=== PATIENT | male | born 1985 | race Caucasian/White ===

== ENCOUNTER 2021-03-20 05:48 | Outpatient (CLI) | payer OTHER ==
[~2021-03-20] VITALS: Ht 172.7 cm; Wt 69.5 kg
[~2021-03-20 05:48] MED LIST: ACET-168 PO; AMOX500C2 PO; SODI104S3 NS
== END 2021-03-21 09:17 | disposition home or self-care (01) ==
LOC: PREOP 05:48
PROVIDERS: ATTEND Surgery
DX: Z01.818 Encounter for other preprocedural examination (principal)

== ENCOUNTER 2021-03-31 05:41 | Outpatient (CLI) | payer OTHER ==
[~2021-03-31] VITALS: Ht 172.7 cm; Wt 69.5 kg
[2021-03-31 11:23] LABS: BASOPHILS % (AUTO) 0 % (0-10); EOSINOPHILS # (AUTO) 0.3 10^3/uL (0.0-0.3); EOSINOPHILS % (AUTO) 3 % (0-10); HEMATOCRIT 45 % (40-54); HEMOGLOBIN 15.5 g/dL (13.3-17.7); LYMPHOCYTES # (AUTO) 2.2 X 10^3 (1.0-4.0); LYMPHOCYTES % (AUTO) 28 % (12-44); MEAN CORPUSCULAR HEMOGLOBIN 30 pg (25-34); MEAN CORPUSCULAR HGB CONC 35 g/dL (32-36); MEAN CORPUSCULAR VOLUME 85 fL (80-99); MEAN PLATELET VOLUME 9.6 fL (9.0-12.2); MONOCYTES # (AUTO) 0.8 X 10^3 (0.0-1.0); MONOCYTES % (AUTO) 9 % (0-12); NEUTROPHILS # (AUTO) 4.7 X 10^3 (1.8-7.8); NEUTROPHILS % (AUTO) 59 % (42-75); PLATELET COUNT 328 10^3/uL (130-400)
== END 2021-03-31 11:51 | disposition home or self-care (01) ==
LOC: PREOP 05:41
PROVIDERS: ATTEND Surgery
DX: Z01.812 Encounter for preprocedural laboratory examination (principal); K40.20 Bilateral inguinal hernia, without obstruction or gangrene, not specified as recurrent
CPT/HCPCS: 36415; 85025; 87081

== ENCOUNTER 2021-03-31 10:53 | Day surgery (SDC) | payer OTHER ==
[~2021-03-31] VITALS: Ht 172.7 cm; Wt 69.5 kg
[2021-03-31] MEDS ORDERED: LACTATED RINGERS 1,000 ML IV ONE (11:02)
[2021-03-31] MEDS ORDERED: PROPOFOL INJECTION 50 ML IV ONE (11:06)
[2021-03-31] MEDS ORDERED: MIDAZOLAM 2 MG/2 ML (VERSED) VIAL ONE (11:07)
[2021-03-31] MEDS ORDERED: LACTATED RINGERS 1,000 ML IV STA (11:07)
[2021-03-31 11:17] VITALS: BP 107/78
[2021-03-31 12:15] VITALS: BP 89/52
--- NOTE | 2021-03-31 12:18 | Progress Note-Post Operative ---
Post-Operative Progess Note Surgeon (s)/Nursing Consultant (s) Surgeon JEAN PIERRE BYRD DO Nursing Consultant: none Pre-Operative Diagnosis rectal bleeding Post-Operative Diagnosis same plus internal hemorrhoids anal fissure Procedure & Operative Findings Date of Procedure 03/31/21 Procedure Performed/Findings After informed consent was obtained, the patient was brought to the endoscopy suite and placed in the bed in the left lateral decubitus position. He was administered IV sedation by the TRIM INSTALLER, who then monitored his vitals the entire time, heart rate, blood pressure and pulse ox and the scope was inserted, started with the colonoscopy. Pushed all the way into about 140 cm to get all the way to cecum, took a picture of the appendiceal orifice, noted the ileocecal valve and then slowly withdrew the scope, insufflating the circumferential sandhu looking the cecum, up the ascending colon to the hepatic flexure, then down the transverse colon, splenic flexure, into the descending colon, down into the sigmoid and finally into the rectum, retroflexed in the rectal vault, saw some minimal internal hemorrhoids and took a picture of this. Noted an anal fissure as I pulled the scope out, no other pathology. The patient tolerated the procedure and he was recovered in the endoscopy suite. Anesthesia Type IV sedation by CALE Estimated Blood Loss Estimated blood loss (mL): none Specimens/Packing Specimens Removed none JEAN PIERRE BYRD DO Mar 31, 2021 12:18
[2021-03-31 12:20] VITALS: BP 89/55
[2021-03-31 12:25] VITALS: BP 100/63
--- NOTE | 2021-03-31 12:34 | Anesthesia-General Post-Op ---
MAC Patient Condition Mental Status/LOC: Same as Preop Cardiovascular: Satisfactory Nausea/Vomiting: Absent Respiratory: Satisfactory Pain: Controlled Complications: Absent Post Op Complications Complications None Follow Up Care/Instructions Patient Instructions None needed. Anesthesiology Discharge Order Discharge Order Patient is doing well, no complaints, stable vital signs, no apparent adverse anesthesia problems. MARITZA LONG DO Mar 31, 2021 12:34
[2021-03-31 12:45] VITALS: BP 98/77
--- NOTE | 2021-03-31 12:46 | Endoscopy Discharge Instruct ---
Endo Procedure/Findings Findings 1.: Internal Hemorrhoids 2.: Other Findings (anal fissure) Discharge Instructions - Activity: You might feel a little sleepy until tomorrow. This is due to the medicine you received to relax you. Until tomorrow, you should: NOT drive a car, operate machinery or power tools. NOT drink any alcoholic beverages. NOT make any important decisions or sign importortant papers. Do not return to work until tomorrow, unless otherwise instructed. Resume previous activities tomorrow. Diet: Start by taking liquids. If you tolerate liquids, advance to solid food. 1.: Colonscopy in 10 years Notify Physician - If you experience excessive bleeding, unusual abdominal pain, fever, or chest pain, contact your doctor immediately. JEAN PIERRE BYRD DO Mar 31, 2021 12:46
[2021-03-31 12:54] VITALS: BP 100/63
[2021-04-02] MEDS ORDERED: ACHD5005 PO (10:42)
== END 2021-03-31 12:55 | disposition home or self-care (01) ==
LOC: ENDO 10:53
PROVIDERS: ATTEND Surgery
DX: K64.8 Other hemorrhoids (principal); K60.2 Anal fissure, unspecified; K40.20 Bilateral inguinal hernia, without obstruction or gangrene, not specified as recurrent; K62.5 Hemorrhage of anus and rectum; F17.210 Nicotine dependence, cigarettes, uncomplicated; Z98.890 Other specified postprocedural states

== ENCOUNTER 2021-04-02 07:56 | Day surgery (SDC) | payer OTHER ==
[2021-04-02] VITALS (11 sets, daily range): BP systolic 97–121; BP diastolic 61–90
[~2021-04-02] VITALS: Ht 172 cm; Wt 69.5 kg
[2021-04-02] MEDS ORDERED: ONDANSETRON 4 MG/2 ML (SDV) Z0FRAN ONE (08:01)
[2021-04-02] MEDS ORDERED: SEVOFLURANE (ULTANE) 15 ML INHAL SOLN ONE ×8 (08:01→10:29)
[2021-04-02] MEDS ORDERED: MIDAZOLAM 2 MG/2 ML (VERSED) VIAL ONE (08:01)
[2021-04-02] MEDS ORDERED: fentaNYL INJ 100 MCG/2 ML AMP ONE ×2 (08:01→10:32)
[2021-04-02] MEDS ORDERED: LIDOCAINE PF 2% 5 ML (XYLOCAINE) VIAL ONE (08:01)
[2021-04-02] MEDS ORDERED: proPOfol 200 MG/20 ML (DIPRIVAN) VIAL IV ONE (08:01)
[2021-04-02] MEDS ORDERED: LIDOCAINE/EPI 1%-1:200,000 (XYLOCAINE) 30 ML VIAL ONE (08:04)
--- NOTE | 2021-04-02 08:10 | Progress Note-Pre Operative ---
Pre-Operative Progress Note H&P Reviewed The H&P was reviewed, patient examined and no changes noted. Time Seen by Provider: 08:09 Date H&P Reviewed: Apr 02, 2021 Time H&P Reviewed: 08:09 Pre-Operative Diagnosis: B/L inguinal hernia JEAN PIERRE BYRD DO Apr 02, 2021 08:10
[2021-04-02] MEDS ORDERED: ceFAZolin INJECTION 1,000 MG in WATER (STERILE) FOR INJECTION 10 ML IV ONE (08:15)
[2021-04-02] MEDS: LACTATED RINGERS 1,000 ML IV PRN ×2 (08:39→09:30)
[2021-04-02] MEDS ORDERED: ROCURONIUM 10 MG/ML 5 ML SYRINGE IV ONE (10:06)
[2021-04-02] MEDS ORDERED: GLYCOPYRROLATE 0.2 MG/ML (ROBINUL) 2 ML VIAL ONE (10:29)
[2021-04-02] MEDS ORDERED: NEOSTIGMINE 3 MG/3 ML VIAL ONE (10:29)
[2021-04-02] MEDS ORDERED: MEPERIDINE (DEMEROL) INJ 50 MG/ML ONE (10:37)
[2021-04-02] MEDS ORDERED: ACHD5005 PO (10:42)
--- NOTE | 2021-04-02 10:42 | Progress Note-Post Operative ---
Post-Operative Progess Note Surgeon (s)/Shoe Caser (s) Surgeon JEAN PIERRE BYRD DO Shoe Caser: Pita Pre-Operative Diagnosis B/L inguinal hernia Post-Operative Diagnosis Right Direct Inguinal hernia, no hernia seen on left Cord lipoma Procedure & Operative Findings Date of Procedure 04/02/21 Procedure Performed/Findings 1. Laparoscopic right inuinal herniarraphy with mesh placement, Robotic assisted 2. Exc of cord lipoma After informed consent was obtained, the patient was brought to the operating room and placed on the operating table in a supine position. He was sterilely prepped and draped in a normal fashion. Local lidocaine was used to infiltrate the skin above the umbilicus. I made an incision with #11 blade, carried down to the skin into subcutaneous tissue and then deepened down the subcutaneous tissue with Bovie electrocautery down to the fascia. Fascia was incised with Bovie electrocautery and bluntly entered the abdomen, swept a finger around, placed 0 Vicryl [id number] suture and placed limited trocar port under direct visualization. Created pneumoperitoneum, able to visualize the hernia and took a picture of this and then placed two 8 mm ports about 10 cm on either side of the midline port using a local lidocaine, 11 blade for stab incision and then advanced the robotic port under direct visualization. Once this was in, I then placed the patient in Trendelenburg and then placed the working instruments, the fenestrated bipolar and the scissors. Looked on the left side and did not see a hernia. I could see a direct hernia defect on the right side. Next, I came across the peritoneum approximately 8 cm away from the hernia defect, going across laterally starting lateral about 17cm and cutting toward the median umbilical ligament. I then carefully dissected the visceral peritoneum away and down and then in the midline, went through the parietal side and dissected down to the pubic tubercle, dissecting this down carefully pushing the peritoneum away, I was able to then visualize the pubic tubercle and Pablo's ligament. I went 2 cm posterior and at this point, we then had a critical view of the dissection, able to dissect 2 cm across the midline to the right side, 2 cm posterior to the Pablo's ligament, able to then parietalize the vas deferens and spermatic vessels right at the groove between Pablo's and iliac vein and able to dissect, make sure there was no peritoneum between those two, actually found a small indirect hernia space, took a picture of this, looked at the femoral space (no hernia seen). Then I carefully teased out the hernia sac and could visualize the indirect and direct hernia space. Next I looked on the cord and cord structures. There was a small cord lipoma that I was able to reduce as well. I could clearely see the inguinal canal and the indirect space. Next I carried the posterior lateral dissection all the way out and then placed a 10 x 16 Midwieght Bard 3DMax mesh. It laid in nicely, covered the hernia defect and the rest of the area. It was above the peritoneum, sutured it at the pubic tubercle with a 3-0 Vicryl suture and tied this off. This appeared to lay in very nicely. I then brought down the pneumoperitoneum to about 8 mmHg and then started closing the peritoneum. Started laterally and used a 2-0 V-lock barbed suture to start a running stitch to close the peritoneum. This was closed nicely, took a picture of the closure at this point, then removed both needles had switched to a suture personal driver from the scissors. I removed the cord lipoma as well. The patient was then placed back supine, removed all ports under direct visualization, allowed pneumoperitoneum to escape and then closed the supraumbilical incision, closing the fascia with 0 Vicryl suture previously placed. Copiously irrigated all incisions and then closed the two small 8 mm incisions with two interrupted 4-0 undyed Monocryl subcuticular stitches and closed the supraumbilical incision with three interrupted undyed Monocryl subcuticular stitch. Area was cleaned and dried. Dermabond was placed. The patient tolerated the procedure. The sponge, instrument and needle counts were correct at the end of the case. Dr. Lema assisted during this surgery by making incisions, closing incisions, helping to identify anatomy and passing/retrieving suture and needles. Anesthesia Type GET Estimated Blood Loss Estimated blood loss (mL): scant Specimens/Packing Specimens Removed cord lipoma JEAN PIERRE BYRD DO Apr 02, 2021 10:41
--- NOTE | 2021-04-02 10:43 | Discharge Inst-Surgical ---
Discharge Inst-Surgical Depart Medication/Instructions New, Converted or Re-Newed RX: RX Given to Pt/Family Patient Instructions Follow up Appt: Make appointment for 1 week. [phone] Instructions: No lifting greater than 20 pounds. No strenuous activity. May shower in 24 hours, no tub bath or soaking. Use incentive spirometer at home as directed. No Smoking Skin/Wound Care: May remove bandages in am. You need to leave the Dermabond on incision it will fall off on it's own. Symptoms to Report: Appetite Changes, Extremity Discoloration, Numbness/Tingling, Swelling Increased, Bleeding Excessive, Eyesight Changes, Pain Increased, Urine Color Change, Constipation(Persistent), Fever over 101 degree F, Pain/Pressure in chest, Urinating Difficulty, Cough Up/Vomit Blood, Heart Beat Irreg/Pounding, Pain/Pressure in jaw, Cramps in feet or legs, Lightheadedness, Pain/Pressure in shoulder, Diarrhea(Persistent), Memory Changes Suddenly, Questions/Concerns, Weight gain consecutive days, Dizziness/Fainting, Nausea/Vomiting, Shortness of Breath, Weight gain over 2 pounds If questions or concerns contact your physician Or seek help at emergency department. Activity Activity as Tolerated: Yes Activity Instructions: Avoid Stress to Incision Driving Instructions: No Driving/Refer to Dr. Milner Discharge Diet: No Restrictions Diet After 24 Hours: Clear Liquid if Nauseous If Any Problems/Questions/Issu: Contact Your Physician, Go to Emergency Room Skin/Wound Care Infection Signs and Symptoms: Increased Redness, Foul Odor of Wound, Increased Drainage, Skin Itchy or Has a Rash, Increased Swelling, Temperature Above 101 F Wound Care Comment: heating pad to shoulder or neck tonight for pain Bathing Instructions: Shower Stitches/Jose/Dermabond Dis: Dermabond Ice Pack: Ice On and Off Site (at incisions as needed for pain) JEAN PIERRE BYRD DO Apr 02, 2021 10:43
[2021-04-02] MEDS ORDERED: HYDROmorphone 2 MG/ML VIAL (DILAUDID) ONE (11:14)
[2021-04-02] MEDS ORDERED: HYDROmorphone 2 MG/ML VIAL (DILAUDID) IV ONE (11:30)
[2021-04-02] MEDS ORDERED: ONDANSETRON 4 MG/2 ML (SDV) Z0FRAN IVP PRN (11:30)
[2021-04-02] MEDS ORDERED: HYDROcodone/APAP 5 MG/325 MG (LORTAB) TAB ONE (12:04)
[2021-04-02] MEDS ORDERED: HYDROcodone/APAP 5 MG/325 MG (LORTAB) TAB PO ONE (12:15)
--- NOTE | 2021-04-02 12:42 | Anesthesia-General Post-Op ---
General Patient Condition Mental Status/LOC: Same as Preop Cardiovascular: Satisfactory Nausea/Vomiting: Absent Respiratory: Satisfactory Pain: Controlled Complications: Absent Post Op Complications Complications None Follow Up Care/Instructions Patient Instructions None needed. Anesthesia/Patient Condition Patient Condition Patient is doing well, no complaints, stable vital signs, no apparent adverse anesthesia problems. No complications reported per nursing. YVES PLEITEZ CRNA Apr 02, 2021 12:42
== END 2021-04-02 14:00 | disposition home or self-care (01) ==
LOC: SDC 07:56
PROVIDERS: ATTEND Surgery
DX: K40.90 Unilateral inguinal hernia, without obstruction or gangrene, not specified as recurrent (principal); D17.6 Benign lipomatous neoplasm of spermatic cord; K62.5 Hemorrhage of anus and rectum; F17.210 Nicotine dependence, cigarettes, uncomplicated
CPT/HCPCS: 49650; C1781; 88304

== ENCOUNTER 2023-09-21 17:59 | Emergency (ER) | payer SELFPAY ==
[~2023-09-21] VITALS: Ht 170.1 cm; Wt 82.0 kg
[~2023-09-21 17:59] MED LIST changes: +ACHD5005 PO
[2023-09-21] MEDS ORDERED: morphine INJ 10 MG/ML 1ML (SYR OR VIAL) IVP STA ×2 (18:33→20:40)
--- NOTE | 2023-09-21 18:36 | ED Abdominal Pain ---
General Stated Complaint: SEVERE ABD PAIN RADIATING TO BACK, LIGHTHEADED Source of Information: Patient, Family () Exam Limitations: No Limitations History of Present Illness Date Seen by Provider: Sep 21, 2023 Time Seen by Provider: 19:25 Initial Comments Patient is a 38yo male who presents to the ER with a complaint of right groin pain - onset all day long worsening into the evening. He has been nauseated. States he is having difficulty urinating. Nothing makes the pain any worse. He states he did have a kidney stone about 2 months ago and was seen but is not sure that he ever passed it. No fevers. No prior abdominal surgeries. Pain radiates into his right testicle. No blood in his stool. Appears to be in a significant amount of distress. Timing/Duration: 4-6 Hours Severity/Quality: Severe Location: Other (right groin) Radiation: Other (right testicle) Associated Symptoms: Diaphoresis, Nausea/Vomiting, Shortness of Air Allergies and Home Medications Allergies Coded Allergies: No Known Drug Allergies (Unverified , 12/18/14) Patient Home Medication List Home Medication List Reviewed: Yes Hydrocodone Bit/Acetaminophen (HYDROcodone/APAP 5 MG/325 MG TAB) 1 Tab Tab, 1 TAB PO Q8H PRN for PAIN-MODERATE (5-7) Prescribed by: JEAN PIERRE BYRD on 04/02/21 104 Hydrocodone/Acetaminophen (Hydrocodone-Acetamin 5-325 mg) 5 Mg-325 Mg Tablet, 1 TAB PO Q6H PRN for PAIN-MODERATE (5-7) Prescribed by: ELENA BANDA on 09/21/232055 Ondansetron (Ondansetron Odt) 4 Mg Tab.rapdis, 4 MG PO Q8H PRN for NAUSEA/VOMITING Prescribed by: ELENA BANDA on 09/21/232054 Tamsulosin HCl (Flomax) 0.4 Mg Cap, 0.4 MG PO HS Prescribed by: ELENA BANDA on 09/21/232054 Review of Systems Review of Systems Constitutional: see HPI Respiratory: Shortness of Air Cardiovascular: No Symptoms Reported Gastrointestinal: Abdominal Pain, Nausea Genitourinary: Other (testicle pain on the right; difficulty urinating) Musculoskeletal: no symptoms reported Skin: no symptoms reported Psychiatric/Neurological: Anxiety Past Wexkiss-Elggux-Tdykco Hx Seasonal Allergies Seasonal Allergies: No Past Medical History Surgeries: No Respiratory: No Cardiac: No Neurological: No Reproductive Disorders: No Sexually Transmitted Disease: No HIV/AIDS: No Genitourinary: No Gastrointestinal: Yes (bilat inguinal hernia) Musculoskeletal: No Endocrine: No HEENT: No Cancer: No Psychosocial: No Integumentary: No Blood Disorders: No Adverse Reaction/Blood Tranf: No Physical Exam Vital Signs Vital Signs - First Documented 09/21/23 18:35 Temp 36.9 Pulse 77 Resp 22 B/P (MAP) 132/99 (110) Pulse Ox 100 O2 Delivery Room Air Capillary Refill : Height/Weight/BMI Height: 5'9" Weight: 130lbs. oz. [id number]; 23.49 BMI Method:Stated General Appearance: WD/WN, severe distress HEENT: PERRL/EOMI Respiratory: lungs clear, normal breath sounds, no respiratory distress, no accessory muscle use Cardiovascular: regular rate, rhythm Gastrointestinal: soft, tenderness (right groin) Genital/Rectal: normal genital exam; No blood at urethral meatus; other (normal right testicle exam, +cremasteric reflex, normal lie of the testicle - it is not swollen, red or significantly tender) Extremities: normal range of motion, non-tender, normal inspection Male: normal genitalia Neurologic/Psychiatric: alert, normal mood/affect, oriented x 3 Skin: warm/dry, damp, pallor Progress/Results/Core Measures Results/Orders Lab Results Laboratory Tests Test 09/21/23 18:35 09/21/23 19:58 Range/Units White Blood Count 11.0 4.3-11.0 10^3/uL Red Blood Count 5.28 4.30-5.52 10^6/uL Hemoglobin 15.6 13.3-17.7 g/dL Hematocrit 45 40-54 % Mean Corpuscular Volume 86 80-99 fL Mean Corpuscular Hemoglobin 30 25-34 pg Mean Corpuscular Hemoglobin Concent 34 32-36 g/dL Red Cell Distribution Width 13.1 10.0-14.5 % Platelet Count 353 130-400 10^3/uL Mean Platelet Volume 10.3 9.0-12.2 fL Immature Granulocyte % (Auto) 0 % Neutrophils (%) (Auto) 71 42-75 % Lymphocytes (%) (Auto) 21 12-44 % Monocytes (%) (Auto) 7 0-12 % Eosinophils (%) (Auto) 1 0-10 % Basophils (%) (Auto) 0 0-10 % Neutrophils # (Auto) 7.8 1.8-7.8 10^3/uL Lymphocytes # (Auto) 2.3 1.0-4.0 10^3/uL Monocytes # (Auto) 0.8 0.0-1.0 10^3/uL Eosinophils # (Auto) 0.1 0.0-0.3 10^3/uL Basophils # (Auto) 0.0 0.0-0.1 10^3/uL Immature Granulocyte # (Auto) 0.0 0.0-0.1 10^3/uL Sodium Level 139 135-145 MMOL/L Potassium Level 3.8 3.6-5.0 MMOL/L Chloride Level 107 98-107 MMOL/L Carbon Dioxide Level 19 L 21-32 MMOL/L Anion Gap 13 5-14 MMOL/L Blood Urea Nitrogen 17 7-18 MG/DL Creatinine 1.02 0.60-1.30 MG/DL Estimat Glomerular Filtration Rate 96 BUN/Creatinine Ratio 17 Glucose Level 105 70-105 MG/DL Calcium Level 10.3 H 8.5-10.1 MG/DL Urine Color YELLOW Urine Clarity CLEAR Urine pH 7.0 5-9 Urine Specific [place] 1.020 1.016-1.022 Urine Protein NEGATIVE NEGATIVE Urine Glucose (UA) NEGATIVE NEGATIVE Urine Ketones 3+ H NEGATIVE Urine Nitrite NEGATIVE NEGATIVE Urine Bilirubin NEGATIVE NEGATIVE Urine Urobilinogen 0.2 < = 1.0 MG/DL Urine Leukocyte Esterase NEGATIVE NEGATIVE Urine RBC (Auto) 1+ H NEGATIVE Urine RBC 5-10 H /HPF Urine WBC NONE /HPF Urine Squamous Epithelial Cells NONE /HPF Urine Crystals NONE /LPF Urine Bacteria NEGATIVE /HPF Urine Casts NONE /LPF Urine Mucus SMALL H /LPF Urine Culture Indicated NO My Orders Orders - ELENA BANDA MD Ed Iv/Invasive Line Start (09/21/23 18:33) Cbc And Automated Diff (09/21/23 18:33) Basic Metabolic Panel (09/21/23 18:33) Ua Culture If Indicated (09/21/23 18:33) Abdomen/Kub 1view (09/21/23 18:33) Ns Iv 1000 Ml (Ns Iv 1000 Ml) (09/21/23 18:45) Morphine Injection (Morphine Injection (09/21/23 18:33) Ondansetron Injection (Ondansetron Inj (09/21/23 18:45) Glycopyrrolate Injection (Glycopyrrolate (09/21/23 18:45) Ct Abd/Pelvis Wo(Kidney Stone) (09/21/23 18:33) Ketorolac Injection (Ketorolac Injection (09/21/23 19:15) Ns Iv 1000 Ml (Ns Iv 1000 Ml) (09/21/23 20:15) Rx-Hydrocodone/Apap 5-325 Mg (Rx-Vicodin (09/21/23 20:45) Rx-Ondansetron Po (Rx-Zofran Po) (09/21/23 20:35) Morphine Injection (Morphine Injection (09/21/23 20:40) Tamsulosin Capsule (Flomax Capsule) (09/22/23 18:00) Tamsulosin Capsule (Flomax Capsule) (09/21/23 20:50) Medications Given in ED Current Medications Medications Dose Ordered Sig/Parul Route Start Time Stop Time Status Last Admin Dose Admin Acetaminophen/ Hydrocodone Bitart 1 ea Q6H PRN PO 09/21/23 20:45 09/21/23 21:05 DC 09/21/23 20:41 1 EA Glycopyrrolate 0.2 mg ONCE ONCE IV 09/21/23 18:45 09/21/23 18:46 DC 09/21/23 19:08 0.2 MG Ketorolac Tromethamine 15 mg ONCE ONCE IVP 09/21/23 19:15 09/21/23 19:16 DC 09/21/23 19:13 15 MG Ondansetron HCl 8 mg ONCE ONCE IVP 09/21/23 18:45 09/21/23 18:46 DC 09/21/23 18:44 8 MG Vital Signs/I&O 09/21/23 09/21/23 18:35 21:03 Temp 36.9 Pulse 77 87 Resp 22 12 B/P (MAP) 132/99 (110) 107/97 Pulse Ox 100 99 O2 Delivery Room Air Room Air 09/21/23 23:59 Intake Total 1000 ml Balance 1000 ml Progress Progress Note #1: Time: 19:12 Progress Note Patient reexamined at this time still having pain at about a "4". Will add Toradol. Progress Note #2: Time: 20:40 Progress Note Patient seen and examined by me. Evaluation today includes history and physical exam, CBC, basic metabolic panel, urinalysis, KUB and CT scan abdomen and pelvis renal stone protocol. Pertinent physical exam findings well-developed well- nourished male in moderate to severe distress due to right groin pain and right testicle pain. He is pale and diaphoretic. Heart is regular, lungs are clear. Abdomen is soft. He has tenderness to palpation along the right inguinal canal and into the scrotum. The testicle itself is not enlarged, no scrotal swelling, testicle has normal lie and cremasteric reflexes present. No blood at the meatus. No skin lesions. Differential diagnosis includes testicular torsion, kidney stone Patient's labs independently reviewed and interpreted by me. His CBC is normal. Basic metabolic panel pertinent for a mildly decreased CO2 at 19. Urinalysis shows no signs of infection but does have 5-10 red blood cells per high-powered field. On physical examination testicular torsion is not high on the list due to normal physical exam. Imaging pursued for kidney stone. KUB is nonspecific per radiologist. The CT renal stone protocol as read by radiology shows a 2 mm stone in the distal right ureter causing mild right-sided hydroureter. No hydronephrosis is noted. Patient is initially treated with a liter of normal sa line, 5 mg of IV morphine and 4 mg of Zofran. Subsequent to this he was given 15 mg of Toradol with much improvement in his pain. As the patient had a little leftover pain on discharge I did give him another dose of morphine, they had an hour drive home to their home town. Patient is sent home with hydrocodone, Zofran and Flomax. Return precautions provided in both verbal and written format. All questions are sought and answered. Patient is improved at discharge. Diagnostic Imaging Diagonstic Imaging: CT Comments [facility], [place] NAME: NUZHAT FIORE [facility] REC#: [id number] PT STATUS: REG ER : 1985 PHYSICIAN: ELENA BANDA MD ADMIT DATE: 09/21/23/ER Draft Date of Exam:09/21/23 CT ABD/PELVIS WO(KIDNEY STONE) PROCEDURE: CT urinary tract, rule out kidney stone. TECHNIQUE: Multiple contiguous axial images were obtained through the abdomen and pelvis without the use of intravenous contrast. Auto Exposure Controls were utilized during the CT exam to meet ALARA standards for radiation dose reduction. INDICATION: Testicular pain radiating to the right flank. No prior studies are available for comparison. The lung bases are clear. The liver and gallbladder are unremarkable. Is no biliary duct dilatation. The pancreas and spleen are unremarkable. No adrenal mass is identified. No renal calculi are identified. There is an approximately 2 mm calculus in the distal right ureter just above the UVJ producing mild right-sided hydroureteronephrosis. The left ureter is unremarkable. No bladder calculi are identified. Aorta is nonaneurysmal. Bowel loops are normal caliber. There is no obstruction. There is no ascites. Prostate is unremarkable. IMPRESSION: 1. 2 mm distal right ureteric calculus producing mild hydroureteral nephrosis. No other significant abnormality is detected. Dictated on workstation # [id number] Dict: 09/21/231851 Trans: 09/21/231900 CVOdimax [id number] Interpreted by: WESLEY YAO MD Electronically signed by: Diagonstic Imaging: Xray Comments [facility], [place] NAME: NUZHAT FIORE [facility] REC#: [id number] PT STATUS: REG ER : 1985 PHYSICIAN: ELENA BANDA MD ADMIT DATE: 09/21/23/ER Draft Date of Exam:09/21/23 ABDOMEN/KUB 1VIEW Indication: Right groin and testicular pain. Time of Exam: 6:58 PM Bowel gas pattern is unremarkable. There is no evidence of obstruction. No free air. Calcific density of the left hemipelvis is noted which is indeterminate. Impression: No acute abnormality is identified. Dictated on workstation # [id number] Dict: 09/21/231856 Trans: 09/21/231902 CVOdimax [id number] Interpreted by: WESLEY YAO MD Electronically signed by: Departure Impression Primary Impression: Kidney stone on right side Disposition: 01 HOME, SELF-CARE Condition: Stable Departure-Patient Inst. Decision time for Depature: 20:42 Referrals: NO,LOCAL PHYSICIAN (PCP/Family) Primary Care Physician Patient Instructions: Kidney Stone, Adult ED Add. Discharge Instructions: Drink lots of fluids to stay well hydrated over the next couple of days. You can take over the counter ibuprofen 3 pills (600mg) with food every 6 hours for pain. Also take the Flomax 0.4mg at night to help urinary flow. I have given you 2 weeks worth (you should not need it this long). Hydrocodone 5mg tablets, 1 every 4-6 hours for more severe pain. Hydrocodone can cause constipation, if you are taking it more than once a day for more than 2 days, take a daily stool softener. Ondansetron (Zofran) 4mg tablets, 1 every 6-8 hours as needed for nausea. Please follow up with your primary care physician. Return to the Emergency Department for any fever with continued pain, or other new, emergent concerns. Scripts Ondansetron (Ondansetron Odt) 4 Mg Tab.rapdis 4 MG PO Q8H PRN for NAUSEA/VOMITING, #12 TAB 0 Refills Prov: ELENA BANDA MD 09/21/23 Hydrocodone/Acetaminophen (Hydrocodone-Acetamin 5-325 mg) 5 Mg-325 Mg Tablet 1 TAB PO Q6H PRN for PAIN-MODERATE (5-7), #12 TAB Prov: ELENA BANDA MD 09/21/23 Tamsulosin HCl (Flomax) 0.4 Mg Cap 0.4 MG PO HS, #14 CAP Prov: ELENA BANDA MD 09/21/23 Work/School Note: Work Release Form Date Seen in the Emergency Department: Sep 21, 2023 Return to Work: Sep 23, 2023 ELENA BANDA MD Sep 21, 2023 18:36
[2023-09-21 18:42] LABS: BASOPHILS % (AUTO) 0 % (0-10); EOSINOPHILS # (AUTO) 0.1 10^3/uL (0.0-0.3); EOSINOPHILS % (AUTO) 1 % (0-10); HEMATOCRIT 45 % (40-54); HEMOGLOBIN 15.6 g/dL (13.3-17.7); LYMPHOCYTES # (AUTO) 2.3 10^3/uL (1.0-4.0); LYMPHOCYTES % (AUTO) 21 % (12-44); MEAN CORPUSCULAR HEMOGLOBIN 30 pg (25-34); MEAN CORPUSCULAR HGB CONC 34 g/dL (32-36); MEAN CORPUSCULAR VOLUME 86 fL (80-99); MEAN PLATELET VOLUME 10.3 fL (9.0-12.2); MONOCYTES # (AUTO) 0.8 10^3/uL (0.0-1.0); MONOCYTES % (AUTO) 7 % (0-12); NEUTROPHILS # (AUTO) 7.8 10^3/uL (1.8-7.8); NEUTROPHILS % (AUTO) 71 % (42-75); PLATELET COUNT 353 10^3/uL (130-400)
[2023-09-21] MEDS ORDERED: ONDANSETRON INJECTION 4 MG/2 ML (SDV) IVP ONE (18:45)
[2023-09-21] MEDS ORDERED: NS IV 1000 ML 1,000 ML IV SCH ×2 (18:45→20:15)
[2023-09-21] MEDS ORDERED: GLYCOPYRROLATE INJ 0.2 MG/ML 2 ML VIAL IV ONE (18:45)
[2023-09-21 18:54] LABS: POTASSIUM 3.8 MMOL/L (3.6-5.0)
[2023-09-21 18:55] LABS: CALCIUM 10.3 MG/DL (8.5-10.1)
[2023-09-21 18:59] LABS: CREATININE SERUM 1.02 MG/DL (0.60-1.30)
--- NOTE | 2023-09-21 19:01 | Diagnostic Imaging Report ---
PROCEDURE: CT urinary tract, rule out kidney stone. TECHNIQUE: Multiple contiguous axial images were obtained through the abdomen and pelvis without the use of intravenous contrast. Auto Exposure Controls were utilized during the CT exam to meet ALARA standards for radiation dose reduction. INDICATION: Testicular pain radiating to the right flank. No prior studies are available for comparison. The lung bases are clear. The liver and gallbladder are unremarkable. Is no biliary duct dilatation. The pancreas and spleen are unremarkable. No adrenal mass is identified. No renal calculi are identified. There is an approximately 2 mm calculus in the distal right ureter just above the UVJ producing mild right-sided hydroureteronephrosis. The left ureter is unremarkable. No bladder calculi are identified. Aorta is nonaneurysmal. Bowel loops are normal caliber. There is no obstruction. There is no ascites. Prostate is unremarkable. IMPRESSION: 1. 2 mm distal right ureteric calculus producing mild hydroureteral nephrosis. No other significant abnormality is detected. Dictated by: Dictated on workstation # [id number]
--- NOTE | 2023-09-21 19:04 | Diagnostic Imaging Report ---
Indication: Right groin and testicular pain. Time of Exam: 6:58 PM Bowel gas pattern is unremarkable. There is no evidence of obstruction. No free air. Calcific density of the left hemipelvis is noted which is indeterminate. Impression: No acute abnormality is identified. Dictated by: Dictated on workstation # [id number]
[2023-09-21] MEDS ORDERED: KETOROLAC INJ 15 MG/ML VIAL IVP ONE (19:15)
[2023-09-21 20:21] LABS: CLARITY,URINE CLEAR; COLOR,URINE YELLOW; GLUCOSE, URINE (UA) NEGATIVE (NEGATIVE); KETONES,URINE 3+ (NEGATIVE); PROTEIN,URINE NEGATIVE (NEGATIVE)
[2023-09-21 20:22] LABS: BACTERIA,URINE NEGATIVE /HPF; BILIRUBIN,URINE NEGATIVE (NEGATIVE); LEUKOCYTE ESTERASE ,URINE NEGATIVE (NEGATIVE); NITRITE,URINE NEGATIVE (NEGATIVE)
[2023-09-21] MEDS ORDERED: RX-ONDANSETRON 4 MG ODT (ZOFRAN) PPK #4 PO STA (20:35)
[2023-09-21] MEDS ORDERED: TAMSULOSIN 0.4 MG (FLOMAX) CAP PO ONE (20:50)
[2023-09-21] MEDS ORDERED: ACHD5005 PO (20:55)
[2023-09-21] MEDS ORDERED: ONDA4TAB11 PO (20:55)
[2023-09-21] MEDS ORDERED: TMSL.4C PO (20:55)
[2023-09-21 21:03] VITALS: BP 107/97
[2023-09-22] MEDS ORDERED: TAMSULOSIN 0.4 MG (FLOMAX) CAP PO SCH (18:00)
== END 2023-09-21 21:03 | disposition home or self-care (01) ==
LOC: EDUNIT# 17:59 → ER 18:04
DX: N13.2 Hydronephrosis with renal and ureteral calculous obstruction (principal); R11.0 Nausea
CPT/HCPCS: 36415; 74018; 74176; 80048; 81000; 85025